=== PATIENT | female | born 2000 | race Two or more races ===

== ENCOUNTER 2024-07-05 23:40 | Emergency (ER) | payer BC ==
[~2024-07-05] VITALS: Ht 162.6 cm; Wt 56.7 kg
[2024-07-06] MEDS ORDERED: SERTRALINE20 MG/1 ML (00:21)
[2024-07-06] MEDS ORDERED: PROMETHAZINE HCL 50 MG/ML AMPUL IM STA (00:30)
[2024-07-06] MEDS ORDERED: 0.9 % SODIUM CHLORIDE 1,000 ML IV ONE (00:30)
[2024-07-06] MEDS ORDERED: FAMOTIDINE/PF 20 MG/2 ML VIAL IV PUSH STA (00:31)
[2024-07-06] MEDS ORDERED: PROMETHAZINE HCL 50 MG/ML AMPUL IM ONE (00:53)
[2024-07-06] MEDS ORDERED: FAMOTIDINE/PF 20 MG/2 ML VIAL ONE (00:53)
[2024-07-06 01:51] LABS: HEMATOCRIT 39.7 % (36.0-45.00); HEMOGLOBIN 13.3 g/dL (12.0-15.00); MEAN CELL VOLUME 77.4 fL (80.00-100.00); MEAN CORPUSCULAR HEMOGLOBIN 25.9 pg (27.00-32.0); MEAN CORPUSCULAR HGB CONC 33.4 g/dl (32.0-36.0); PLATELET COUNT 203 K/uL (150-450); RED BLOOD COUNT 5.13 M/uL (4.00-6.00); RED CELL DISTRIBUTION WIDTH 16.3 % (11.5-14.5)
[2024-07-06 02:29] LABS: CALCIUM 9.1 mg/dL (8.5-10.1); CREATININE SERUM 0.68 mg/dL (0.55-1.02); GFR 106.3; POTASSIUM 3.95 mEq/L (3.5-5.1)
[2024-07-06 03:05] LABS: URINE APPEARANCE Cloudy; URINE BILIRRUBIN Negative (NEGATIVE); URINE BLOOD Negative; URINE COLOR Yellow; URINE GLUCOSE Negative (NEGATIVE); URINE KETONE Negative (NEGATIVE); URINE LEUKOCYTE Trace; URINE NITRATE Negative; URINE PROTEIN Trace (NEGATIVE)
[2024-07-06 03:09] LABS: URINE BACTERIA 490.8 uL (0.0-1933); URINE CAST 4.27 uL (0.0-1.40); URINE EPITHELIAL CELLS 34.1 uL (0.0-38.8); URINE WBC 25.3 uL (0.0-23.2)
[2024-07-06 03:32] LABS: URINE MUCUS MODERATE
[2024-07-06] MEDS ORDERED: CIPROFLOXACIN IN 5 % DEXTROSE 400 MG/200 ML PIGGYBAG IV STA (03:51)
[2024-07-06] MEDS ORDERED: LACTOBACILLUS ACIDOPHILUS 1 CAP CAP PO STA (03:53)
[2024-07-06] MEDS ORDERED: CIPROFLOXACIN IN 5 % DEXTROSE 400 MG/200 ML PIGGYBAG IV ONE (03:59)
[2024-07-06] MEDS ORDERED: LACTOBACILLUS ACIDOPHILUS 1 CAP CAP PO ONE (03:59)
[2024-07-06] MEDS ORDERED: ONDANSETRON HCL 2 MG/ML VIAL ONE (05:04)
[2024-07-06] MEDS ORDERED: ONDANSETRON HCL 2 MG/ML VIAL IV STA (05:14)
[2024-07-06] MEDS ORDERED: PEPCID AC20 MG PO (08:51)
[2024-07-06] MEDS ORDERED: ONDANSETRON ODT8 MG PO (08:51)
[2024-07-06] MEDS ORDERED: CIPRO500 MG PO (08:51)
[2024-07-06] MEDS ORDERED: INTESTINEX680 M1 PO (08:51)
== END 2024-07-06 09:43 | disposition home or self-care (01) ==
LOC: ER 23:43
PROVIDERS: General Practice
DX: R19.7 Diarrhea, unspecified (principal); R11.10 Vomiting, unspecified